=== PATIENT | male | born 1965 | race Caucasian/White ===

== ENCOUNTER → 2020-02-10 16:20 | Outpatient (CLI) | payer SELFPAY ==
--- NOTE | 2020-02-10 16:28 | RAD_ITS ---
STUDY: X-RAY CHEST REASON FOR EXAM: Male, 54 years old. PT HAD A COUGH, DX W/PNEUMONIA IN DECEMBER, STATES SYMPTOMS HAVE MOSTLY RESOLVED TECHNIQUE: COMPARISON: None. FINDINGS: Low lung volumes. Cardiac silhouette unremarkable. Pulmonary vascularity unremarkable. Aorta unremarkable. No focal patchy airspace opacities. No pleural effusions. Elevated right hemidiaphragm. Upper abdomen unremarkable. Osseous structures intact with degenerative features. No pneumothorax. RAD/Chest PA and Lateral IMPRESSION: No acute cardiopulmonary findings Electronically Signed: Wilson Landon DO at 9:20 EDT Tel , Service support ,
== END ==
PROVIDERS: PCP Family Medicine; Referring Provider Family Medicine; Visit Provider Family Medicine
DX: J18.9 Pneumonia, unspecified organism (principal)
CPT/HCPCS: 71046

== ENCOUNTER 2023-02-11 12:04 | Emergency (ER) | payer OTHER, SELFPAY ==
[2023-02-11 12:04] VITALS: BP 188/111; PULSE 92; RESP 16; TEMP 36.6; O2SAT 94; BMI 37.1
[2023-02-11 12:59] VITALS: BP 183/109
[2023-02-11 13:18] VITALS: BP 178/116; PULSE 96; RESP 20; O2SAT 96
--- NOTE | 2023-02-11 14:10 | EX.ED.DYSGE1 ---
HPI History of Present Illness Chief Complaint: Hypertension Narrative Narrative: 57-year-old male presenting with high blood pressure. He states he had this for a very long time. He reports that every time he sees somebody at a physician's office to ask if he has high blood pressure and he communicates to them yes. He is never been on any medication. He denies headaches, visual changes, dizziness, lightheadedness, nausea, vomiting. He denies chest pain, palpitations, shortness of breath. Patient denies any significant weight gain or loss. Patient has been otherwise healthy. He does relate that he has had a couple of nosebleeds recently but also feels as if he has been having the space heater at his office too high and it is drying out his airway. PFSH PFSH Medical History no medical history Home Medications azithromycin 250 mg tablet (Zithromax Z-Denilson) See Rx Instructions PO .COMPLEX #6 tabs 01/16/23 [Rx Last Taken Unknown] Allergy/AdvReac Type Severity Reaction Status Date / Time No Known Allergies Allergy Verified 02/11/23 12:09 Family History no significant family his Surgical History no surgical history Social History Smoking Status: Never smoker alcohol intake: never ROS ROS ED Constitutional Constitutional ED: Denies chills or fever(s) Eyes Eyes: Denies change in vision or diplopia ENT ENT ED: Reports other Details: Occasional epistaxis ; Denies rhinorrhea or sore throat Cardiovascular Cardiovascular: Denies chest pain or palpitations Respiratory/Chest Respiratory/Chest: Denies cough or dyspnea Gastrointestinal Gastrointestinal: Denies abdominal pain, constipation or diarrhea Genitourinary Genitourinary ED: Denies dysuria or hematuria Musculoskeletal Musculoskeletal: Denies arthralgias or back pain Integumentary Denies abscess or Abrasions Neurologic Neurologic: Denies headache(s), paresthesias or weakness Psychiatric Psychiatric: Denies anxiety or depression EXAM Physical Exam Const Vital Signs: 02/11/23 12:04 02/11/23 12:59 02/11/23 13:18 Temperature 98 F Temperature Source Temporal Pulse Rate 92 96 Respiratory Rate 16 20 H Blood Pressure 188/111 H 183/109 H 178/116 H Blood Pressure Mean 136 133 136 Pulse Ox 94 96 Oxygen Delivery Method Room Air Room Air Positive well nourished General Appearance ED: NAD ESTEFANIAENT Reports moist mucous membranes Eyes PERRL and EOMs intact bilaterally Resp normal respiratory effort Effort and Inspection: Negative for retractions Cardio regular rate and regular rhythm Extremity normal to inspection Neuro oriented x3 and CN's II-XII intact bilaterally Neuro Narrative: No focal neurologic deficits or lateralizing signs or symptoms with Sensorium / Orientation: alert Motor Exam: strength 5/5 throughout Psych mental status grossly normal Skin no rashes or lesions noted MDM MDM MDM Narrative Medical decision making narrative: Patient presenting with essentially asymptomatic hypertension. Does not any red flag signs or symptoms. He has an office appointment today at 320 to be evaluated for his hypertension. This appears to be a long-term issue. I feel he is safe to make this appointment. I spoke with Dr. Andino who is on-call for his current primary care physician. He recommended discharge home to make this appointment. Patient discharged stable condition. Impression: 1. Hypertension Discharge Plan Triage Chief Complaint: Hypertension ED Provider: Jamey Elizabeth Dx/Rx/DC Orders Instructions: ED Hypertension, To Be Confirmed Prescriptions: No Action azithromycin [Zithromax Z-Denilson] 250 mg tablet See Rx Instructions PO .COMPLEX Qty: 6 0RF Rx Instructions: take 500 mg today (day 1), then 250 mg for 4 days (days 2-5) PO Primary Care Provider: Mesfin Rodriges Referrals: Mesfin Rodriges MD [Primary Care Provider] - Disposition Disposition: Home, Self Care
[2023-02-11 14:19] VITALS: BP 172/100; PULSE 68; RESP 18; O2SAT 98
== END 2023-02-11 14:20 | disposition home or self-care (01) ==
PROVIDERS: Emergency Provider Student in an Organized Health Care Education/Training Program; PCP Family Medicine; Visit Provider Student in an Organized Health Care Education/Training Program
DX: I10 Essential (primary) hypertension (principal)
CPT/HCPCS: 99282; A4216

== ENCOUNTER 2023-05-30 04:42 | Emergency (ER) | payer SELFPAY ==
[2023-05-30 04:43] VITALS: BP 161/97; PULSE 65; RESP 18; TEMP 36.4; O2SAT 95; BMI 37.9
--- NOTE | 2023-05-30 04:51 | EX.ED.DYSGE1 ---
HPI History of Present Illness Chief Complaint: Hypertension Informant: patient Narrative Narrative: Patient having a right-sided nosebleed much of the evening and having trouble getting it to stop. However, currently the bleeding has stopped. He denies any systemic symptoms or obvious reason for the bleeding, no foreign body, injury. He takes no anticoagulants. He takes natural supplements for hypertension and no prescription medications. He states he has had off-and-on nosebleeds from the right side for a long time but never had to come to the doctor for it. Her at home out of concern, and it was 145/100, and he feels that was the cause. [facility] Medical History (Updated 05/30/23 @ 04:[address] Shahbaz Oneil MD) Hypertension Home Medications NK 05/30/23 [History Last Taken Unknown] Allergy/AdvReac Type Severity Reaction Status Date / Time No Known Allergies Allergy Verified 02/11/23 12:09 Family History no significant family his Surgical History (Updated 05/30/23 @ 04:[address] Shahbaz Oneil MD) History of back surgery Social History Smoking Status: Never smoker alcohol intake: never ROS ROS ED ENT ENT ED: Reports epistaxis Cardiovascular Cardiovascular: Denies lightheadedness Respiratory/Chest Respiratory/Chest: Denies dyspnea Gastrointestinal Gastrointestinal: Denies nausea or vomiting EXAM Physical Exam Const Vital Signs: 05/30/23 04:43 05/30/23 04:45 05/30/23 05:45 Temperature 97.5 F L Temperature Source Temporal Pulse Rate 65 60 Respiratory Rate 18 16 Respiratory Effort Normal Respiratory Pattern Normal Blood Pressure 161/97 H 150/107 H Blood Pressure Mean 118 121 Pulse Ox 95 93 Oxygen Delivery Method Room Air Room Air Positive well nourished and well developed General Appearance ED: well developed and NAD HEENT Reports moist mucous membranes HEENT Narrative: No active epistaxis. Evidence of recent bleeding from anterior aspect of Ann box plexus at the septum right naris, no blood in the left. No clots. No posterior oropharyngeal blood or bleeding at this time. No stridor. Conversive in full sentences without difficulty. Eyes PERRL and EOMs intact bilaterally Extremity normal to inspection Neuro oriented x3, CN's II-XII intact bilaterally and no sensory deficits noted Motor Exam: strength 5/5 throughout Psych mental status grossly normal Skin no rashes or lesions noted and no wounds MDM MDM MDM Narrative Medical decision making narrative: Patient has fresh clot up against the septum, and it looks like the recent source of bleeding. Patient with high likelihood of rebleeding, I reassured him about his blood pressure. Mostly in the 140s with several rechecks here, not an emergent issue as far as that level is concerned and I do not think it is causing this nosebleed. We soaked his nose in a pledget with Dr. German eldridge, but on multiple rechecks the area is actively bleeding even with holding pressure. Therefore cauterization is not an option chemically, and we placed a noninflatable short rapid Rhino packing which he tolerated well. He was observed for another 15 minutes and had no bleeding or complications. Discharged home with close outpatient follow-up with ENT for packing removal, usually it would be 2 days but since that will be Friday, he is advised to call for appointment on Friday. We discussed reasons to return. Procedures Other Procedures Procedure(s): Epistaxis care-see above Discharge Plan Triage Chief Complaint: Hypertension ED Provider: Shahbaz Oneil Dx/Rx/DC Orders Clinical Impression: Acute anterior epistaxis Instructions: ED Epistaxis (Adult) Prescriptions: No Action NK Primary Care Provider: Mesfin Rodriges Referrals: Mesfin Rodriges MD [Primary Care Provider] - Braden Pollard MD [Med Staff - Active Staff] - 2 Days (Call for appointment to be seen on Friday for packing removal) Activity Restrictions/Additional Instructions: Get any fnon-xyk-fatyrqj nasal decongestant spray containing oxymetazoline or phenylephrine. For moderate-severe nosebleed: 1 - gather supplies: nasal decongestant spray (above), cotton ball, box of tissues, garbage can, old towel that you can wrap around your chest/neck (to catch blood) 2 - soak a cotton ball in the nasal spray 3 - blow your nose, get all blood and clots out, keep chin down to prevent blood from going back into throat and forming clots 4 - after blowing the last time, quickly spray 2 sprays of the nasal spray into the affected side and sniff it back, immediately followed by twisting the soaked cotton ball into the front of your nose and then hold pressure with your fingers. 5 - if bleeding controlled, leave cotton ball in place for at least 20 min before checking to see if the bleeding is controlled by removing the cotton ball. If not able to control bleeding, always welcome to return to the ER for help. Disposition Disposition: Home, Self Care
[2023-05-30 05:45] VITALS: BP 150/107; PULSE 60; RESP 16; O2SAT 93
[2023-05-30] MEDS: Mixture 30 ML Bottle 5 ML TOPICAL (05:45)
[2023-05-30] MEDS: Silver Nitrate (BKC) 1 EACH TOPICAL (05:46)
== END 2023-05-30 06:55 | disposition home or self-care (01) ==
LOC: ED 05:09
PROVIDERS: Emergency Provider Emergency Medicine; PCP Family Medicine; Visit Provider Emergency Medicine
DX: R04.0 Epistaxis (principal); I10 Essential (primary) hypertension
CPT/HCPCS: 99283

== ENCOUNTER → 2024-01-20 | Outpatient (CLI) | payer SELFPAY ==
[2024-01-20 14:27] LABS: Bacteria 0 SEEN /hpf (None Seen); Mucous, Urine 0 SEEN /hpf (<or=2+); Red Blood Cells-Urine 0 SEEN /hpf (0-5); Squamous Epithelial Cells - UA 0 SEEN /hpf (0-5); White Blood Cells 0 SEEN /hpf (0-5)
[2024-01-20 18:01] LABS: Color, Urine Yellow (Yellow); Glucose, Dipstick Normal (Normal); Ketone-Dipstick Negative (Negative); Leukocyte Esterase-Dipstick Negative /ul (Negative); Nitrite-Dipstick Negative (Negative); Occult Blood-Urine Negative /ul (Negative); Protein-Dipstick Negative (Negative); Specific Gravity, Urine 1.015 (1.002-1.030); Urine Bilirubin Dipstick Negative (Negative); Urine Clarity Clear (Clear); Urine Urobilinogen Normal (Normal); Urine pH 6.5 (5.0 - 8.0)
[2024-01-20 18:03] LABS: Absolute Lymphocyte Count 3.01 X10^3/uL (0.83-4.51); Absolute Neutrophil Count 3.1 X10^3/uL (2.0-7.7); Basophil# 0.02 X10^3/uL; Basophil% 0.3 % (0-1); Eosinophil# 0.11 X10^3/uL; Eosinophils% 1.6 % (0-5); Hematocrit 45.8 % (40-54); Hemoglobin 15.7 g/dL (13.0-16.5); Lymphocyte # 3.01 X10^3/ul (0.83-4.51); Lymphocyte % 44.3 % (19-41); Mean Corp Hgb Conc 34.3 g/dL (32-36); Mean Corpuscular Hgb 30.4 pg (27.0-32.0); Mean Corpuscular Volume 88.6 fL (80-94); Mean Platelet Vol. 10.1 fl (6.2-12.0); Monocyte# 0.55 X10^3/uL; Monocyte% 8.1 % (0-10); NRBC Flagged by Analyzer 0 % (0-5); Neutrophil # 3.08 X10^3/uL (2.7-7.7); Neutrophil % 45.4 % (47-70); Platelet Count 261 K/mm3 (150-450); RBC Distribution Width CV 12.1 % (11.6-14.6); RBC Distribution Width SD 39.4 fl (35.1-43.9); Red Blood Count 5.17 M/mm3 (4.6-6.2); White Blood Count 6.8 K/mm3 (4.4-11.0)
[2024-01-20 18:58] LABS: ALB/GLOB Ratio 1.1 RATIO (0.9-2.4); AST(SGOT) 32 U/L (15-37); Alanine Aminotransfer ALT/SGPT 60 U/L (16-61); Albumin, Serum 3.9 g/dL (3.2-5.0); Alkaline Phosphatase 57 U/L (45-117); Anion Gap 8 (5-15); BUN 13 mg/dL (7-18); BUN/Creat Ratio 16.2 RATIO (10-20); Calcium,Total 8.7 mg/dL (8.5-10.1); Chloride 106 mmol/L (98-107); Cholesterol 185 mg/dL (200); EST Glomerular Filtration Rate 106 mL/min (>60); Est Glom Filt Rate - Afr Amer 128 mL/min (>60); Globulin 3.4 g/dL (2.2-4.2); Glucose 93 mg/dL (74-106); High Density Lipoprotein 32 mg/dL; Potassium 3.7 mmol/L (3.5-5.1); Protein, Total 7.3 g/dL (6.4-8.2); Sodium Level 139 mmol/L (136-145); Thyroid Stim Hormone (TSH) 2.31 uIU/mL (0.358-3.74); Triglycerides 343 mg/dL; Very Low Density Lipoprotein 69 mg/dL (5-40)
--- OUTSIDE RECORDS SUMMARY | 2024-01-20 19:37 | XMS RPT_ITS | CCD ---
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 [employer] Name Role Phone JOSEFINA RIZO MD Unavailable Unavailable JOSEFINA RIZO MD Unavailable Unavailable JOSEFINA RIZO MD Unavailable Unavailable JOSEFINA RIZO MD Unavailable Unavailable JOSEFINA RIZO MD Unavailable Unavailable JOSEFINA RIZO MD Unavailable Unavailable PHYSICIAN, NONE Primary Care Physician Unavailab le Problems Problem Classification Problem Date Documented Da te Episodic/Chronic Unclassified (4 sources) Other specified abnormal findings of blood chemistry; Translations: [Encounter for screening for malignant neoplasm of prostate] Onset: 11-19-2017 Episodic Results Test Name Value Interpretation Reference Range Facil ity Encounters Encounter Date Encounter Type Care Provider Facility Start: 08-12-2023 End: 08-12-2023 Patient encounter procedure FABIOLA THAO FROG OR [employer] [facility] Start: 12-04-2017 End: 12-04-2017 Ambulatory JOSEFINA LIN [facility] Start: 11-19-2017 End: 11-19-2017 Ambulatory JOSEFINA LIN [facility] Social History Date Type Detail Facility Tobacco smoking status No Smoking Status Entered [facility] Sex Assigned At Male [facility] Clinical Note 08-12-2023 Note Date & Type Note Facility [facility] Evaluation + Plan note Note Date & Type Note Facility Evaluation + Plan note No data available for this section [facility] Hospital Discharge instructions Note Date & Type Note Facility Hospital Discharge instructions No data available for this section [facility] Progress note Note Date & Type Note Facility Progress note No data available for this section [facility] Summary Purpose Family History No Family History Records Found No data available for this section Advance Directives No Advanced Directives Records Found Additional Source Comments (unrecognized sect ion and content) No Status Records Found INFORMATION SOURCE (unrecogn ized section and content) FOR RECORDS PERTAINING TO PATIENTS WHO ARE OR HAVE BEEN ENROLLED IN A CHEMICAL DEPENDENCY/SUBSTANCEABUSE PROGRAM, SOME INFORMATION MAY BE OMITTED. This clinical summary was aggregated from multiple sources. Caution should be exercised in using it in the provision of clinical care. This summary normalizes information from multiple sources, and as a consequence, information in this document may materially change the coding, format and clinical context of patient data. In addition, data may be omitted in some cases. CLINICAL DECISIONS SHOULD BE BASED ON THE PRIMARY CLINICAL RECORDS. [facility] [employer] [facility]. provides no warranty or guarantee of the accuracy or completeness of information in this document.
== END | disposition home or self-care (01) ==
LOC: MFPLAB 14:25
PROVIDERS: PCP Family Medicine; Visit Provider Family Medicine
DX: I10 Essential (primary) hypertension (principal)
CPT/HCPCS: 36415; 80053; 80061; 81001; 84443; 85025